=== PATIENT | female | born 1995 | race African-American/Black ===

== ENCOUNTER 2023-09-28 15:36 | Emergency (ER) | payer OTHER, SELFPAY | END 2023-09-28 16:08 | disposition left against medical advice (07) | LOC: EXPBETH 15:41 | PROVIDERS: Emergency Provider Nurse Practitioner Family; PCP Emergency Medicine | DX: Z53.21 Procedure and treatment not carried out due to patient leaving prior to being seen by health care provider (principal) | CPT/HCPCS: 99199 ==